=== PATIENT | female | born 1995 | race Caucasian/White ===

== ENCOUNTER 2017-06-07 15:10 | Emergency (ER) | payer SELFPAY ==
[~2017-06-07] VITALS: Ht 160 cm; Wt 65.8 kg
[2017-06-07 15:10] VITALS: BP 120/74
[2017-06-07] MEDS ORDERED: IBUPROFEN 600 MG TABLET PO ONE (16:24)
[2017-06-07] MEDS: IBUPROFEN 600 MG TABLET PO ONE (16:32)
== END 2017-06-07 16:37 | disposition home or self-care (01) ==
LOC: ER 15:12 → EDBD 15:12 → ER 16:37
DX: M54.2 Cervicalgia (principal); V49.59XA Passenger injured in collision with other motor vehicles in traffic accident, initial encounter; Y93.89 Activity, other specified; Y92.413 State road as the place of occurrence of the external cause; Y99.8 Other external cause status
CPT/HCPCS: A4606; Z7610